=== PATIENT | female | born 1955 | race Two or more races ===

== ENCOUNTER 2017-09-12 19:54 | Emergency (ER) | payer OTHER ==
[~2017-09-12] VITALS: Ht 160 cm; Wt 80.3 kg
[2017-09-12] MEDS ORDERED: PANTOPRAZOLE 40 MG/10 ML VIAL IV STA (20:39)
[2017-09-12] MEDS ORDERED: SODIUM CHLORIDE 0.9% 500 ML IVB ONE (20:39)
[2017-09-12] MEDS ORDERED: ONDANSETRON HCL 4 MG/2 ML VIAL IV ONE (20:45)
[2017-09-12] MEDS ORDERED: MORPHINE SULFATE 4 MG/ML SYR/VIAL IV ONE (20:45)
[2017-09-12 21:35] LABS: Basophils # (auto) 0 uL; Basophils % (auto) 0.2 % (0.0-2.0); Eosinophils # (auto) 0 uL; Eosinophils % (auto) 0.2 % (0.0-7.0); Hematocrit 37.2 % (36.0-46.0); Hemoglobin 12.6 g/dL (12.2-16.2); Lymphocytes # (auto) 0.2 uL; Lymphocytes % (auto) 1.8 % (10.0-50.0); Mean Corpuscular Hemoglobin 32.7 pg (28.0-32.0); Mean Corpuscular Hgb Conc. 33.7 g/dL (32.0-36.0); Mean Corpuscular Volume 96.8 fL (80.0-100.0); Monocytes # (auto) 0.3 uL; Monocytes % (auto) 3.6 % (0.0-12.0); Neutrophils % (auto) 94.2 % (37.0-80.0); Platelet Count (auto) 160 10^3/uL (140-450); Red Blood Cells 3.84 10^6/uL (4.0-5.20); Red Cell Distribution Width 13.5 % (11.8-14.3); White Blood Cell 8.5 10^3/uL (4.4-10.8)
[2017-09-12 21:49] LABS: Albumin 3.4 g/dL (3.4-5.0); BUN/Creatinine Ratio 32.1; Magnesium 1.9 mg/dL (1.6-2.6); Potassium 3.5 mmol/L (3.5-5.1)
[2017-09-12 21:51] LABS: Bilirubin, Total 0.9 mg/dL (0.2-1.0); Total Protein 6.1 g/dL (6.4-8.2)
[2017-09-12 22:22] LABS: Urine Bacteria NONE SEEN /hpf (None Seen); Urine Blood TRACE /uL (Negative); Urine Mucus FEW (None Seen); Urine Specific Gravity 1.027 (1.001-1.035); Urine WBC 5 /hpf (0 - 5)
[2017-09-12 23:05] VITALS: BP 123/63
[2017-09-12] MEDS ORDERED: metroNIDAZOLE 500MG/100ML 100 ML IV ONE (23:15)
[2017-09-12] MEDS ORDERED: metroNIDAZOLE 500 MG TAB PO ONE (23:30)
== END 2017-09-12 23:24 | disposition short-term general hospital (02) ==
LOC: EDBD 19:54 → ER 19:54
DX: E86.0 Dehydration (principal); Z98.51 Tubal ligation status
CPT/HCPCS: 36415; 74176; 80053; 81001; 82150; 83690; 83735; 85025; 93005; 94761; 96361; 96374; 96375; 99285; C9113; J2270; J2405; J7030

== ENCOUNTER 2018-09-20 20:13 | Emergency (ER) | payer SELFPAY ==
[~2018-09-20] VITALS: Ht 154.9 cm; Wt 65.8 kg
[2018-09-20 20:44] LABS: Urine WBC None Seen /hpf (0 - 5)
[2018-09-20 21:00] LABS: Urine Bacteria NONE SEEN /hpf (None Seen); Urine Blood Negative /uL (Negative); Urine Specific Gravity 1.007 (1.001-1.035)
[2018-09-20 23:34] LABS: Basophils # (auto) 0 uL; Basophils % (auto) 0.4 % (0.0-2.0); Eosinophils # (auto) 0.1 uL; Eosinophils % (auto) 0.6 % (0.0-7.0); Hematocrit 45.6 % (36.0-46.0); Hemoglobin 15.5 g/dL (12.2-16.2); Lymphocytes # (auto) 0.7 uL; Lymphocytes % (auto) 7.1 % (10.0-50.0); Mean Corpuscular Hemoglobin 32.5 pg (28.0-32.0); Mean Corpuscular Hgb Conc. 33.9 g/dL (32.0-36.0); Mean Corpuscular Volume 95.8 fL (80.0-100.0); Monocytes # (auto) 0.5 uL; Monocytes % (auto) 4.8 % (0.0-12.0); Neutrophils # (auto) 8.3 uL; Neutrophils % (auto) 87.1 % (37.0-80.0); Platelet Count (auto) 272 10^3/uL (140-450); Red Blood Cells 4.76 10^6/uL (4.0-5.20); Red Cell Distribution Width 13.4 % (11.8-14.3); White Blood Cell 9.6 10^3/uL (4.4-10.8)
[2018-09-20 23:46] LABS: Albumin 3.9 g/dL (3.4-5.0); BUN/Creatinine Ratio 13.3; Calcium 8.7 mg/dL (8.5-10.1); Potassium 3.8 mmol/L (3.5-5.1)
[2018-09-20 23:49] LABS: Bilirubin, Total 0.3 mg/dL (0.2-1.0); Total Protein 8.3 g/dL (6.4-8.2)
[2018-09-21] MEDS ORDERED: IBUPROFEN 600 MG TAB PO ONE (01:45)
[2018-09-21 10:31] VITALS: BP 109/67
== END 2018-09-21 11:09 | disposition home or self-care (01) ==
LOC: ER 20:13
DX: R94.5 Abnormal results of liver function studies (principal); M19.90 Unspecified osteoarthritis, unspecified site; Z98.51 Tubal ligation status
CPT/HCPCS: 36415; 71045; 76705; 80053; 81001; 83605; 84484; 85025; 87040; 93005

== ENCOUNTER 2022-07-18 06:58 | Inpatient (IN) | payer BC ==
[~2022-07-18] VITALS: Ht 180.3 cm; Wt 62.3 kg
[2022-07-18 07:31] LABS: Basophils # (auto) 0 10 ^3/uL (0-0.2); Basophils % (auto) 0.4 % (0.0-2.0); Eosinophils # (auto) 0 10 ^3/uL (0-0.8); Hemoglobin 12.7 g/dL (12.2-16.2); Lymphocytes # (auto) 1.7 10 ^3/uL (0.4-5.4); Monocytes # (auto) 0.9 10 ^3/uL (0-1.3)
[2022-07-18 07:35] LABS: Eosinophils % (auto) 0.2 % (0.0-7.0); Hematocrit 36.1 % (36.0-46.0); Lymphocytes % (auto) 20.4 % (10.0-50.0); Mean Corpuscular Hemoglobin 31.5 pg (28.0-32.0); Mean Corpuscular Hgb Conc. 35.2 g/dL (32.0-36.0); Mean Corpuscular Volume 89.5 fL (80.0-100.0); Monocytes % (auto) 10.8 % (0.0-12.0); Neutrophils # (auto) 5.7 10 ^3/uL (1.6-8.6); Neutrophils % (auto) 68.2 % (37.0-80.0); Red Blood Cells 4.03 10^6/uL (4.0-5.20); Red Cell Distribution Width 12.6 % (11.8-14.3); White Blood Cell 8.3 10^3/uL (4.4-10.8)
[2022-07-18 07:41] LABS: Albumin 3.2 g/dL (3.4-5.0); Calcium 9.4 mg/dL (8.5-10.1); Potassium 4.1 mmol/L (3.5-5.1)
[2022-07-18 07:44] LABS: Bilirubin, Total 0.3 mg/dL (0.2-1.0); Total Protein 7.2 g/dL (6.4-8.2)
[2022-07-18] MEDS ORDERED: SODIUM CHLORIDE 0.9% 1,000 ML IV ONE (07:45)
[2022-07-18] MEDS ORDERED: ASPirin 81 mg TAB PO ONE (07:45)
[2022-07-18 08:07] LABS: Urine Bacteria FEW /hpf (None Seen); Urine Blood TRACE /uL (Negative); Urine Hyaline Cast MANY /lpf (0 - 2); Urine Mucus FEW (None Seen); Urine Specific Gravity 1.021 (1.001-1.035); Urine WBC 12 /hpf (0 - 5)
[2022-07-18 08:10] LABS: INR 1.06 (0.9-1.15); Partial Thromboplastin Time 29.5 sec (24.6-33.4)
[2022-07-18] MEDS ORDERED: IOHEXOL 350 MG/ML 100ML IJ ONE (12:44)
[2022-07-18] MEDS ORDERED: NITROGLYCERIN 0.4 MG SL TAB SL PRN (15:00)
[2022-07-18] MEDS ORDERED: ONDANSETRON HCL 4 MG/2 ML VIAL IV PRN (15:00)
[2022-07-18] MEDS ORDERED: MORPHINE SULFATE INJ 2 MG/ml SYRG IV PRN ×2 (15:00)
[2022-07-18 17:35] LABS: Free T4 (Free Thyroxine) 6.04 ng/dL (0.89-1.76)
[2022-07-18 17:36] LABS: Free T3 14.71 pg/mL (2.3-4.2)
[2022-07-18] MEDS: SODIUM CHLORIDE 0.9% 1,000 ML IV SCH ×2 (19:47→23:37)
[2022-07-18] MEDS ORDERED: IPRATROPIUM BROM 0.5 MG/2.5ML INH SOL NEB PRN (20:00)
[2022-07-18 20:07] VITALS: BP 140/85
[2022-07-18] MEDS ORDERED: ALBUTEROL MEDNEB 2.5 mg/3ml NEB NEB PRN (20:15)
[2022-07-18] MEDS: ATORVASTATIN 20 MG TAB PO SCH (21:49)
[2022-07-18] MEDS: PROPRANOLOL HCL 20 MG TAB PO SCH (22:00)
[2022-07-18 22:31] VITALS: BP 108/54
[2022-07-18 23:30] VITALS: BP 102/59
[2022-07-19] MEDS ORDERED: LORA-655 PO (02:32)
[2022-07-19] MEDS ORDERED: MELO-61 PO (02:32)
[2022-07-19] MEDS ORDERED: OMEG600C2 PO (02:32)
[2022-07-19] MEDS ORDERED: [UNRECOGNIZED DRUG - CODE] PO (02:32)
[2022-07-19] MEDS ORDERED: IBUP200C14 PO (02:32)
[2022-07-19] MEDS ORDERED: MULT1TAB57 PO (02:32)
[2022-07-19] MEDS ORDERED: TURM500C3 OR (02:32)
[2022-07-19] MEDS ORDERED: CHOL3000 PO (02:32)
[2022-07-19 05:00] VITALS: BP 107/55
[2022-07-19 06:11] LABS: Basophils # (auto) 0 10 ^3/uL (0-0.2); Basophils % (auto) 0.3 % (0.0-2.0); Eosinophils # (auto) 0.1 10 ^3/uL (0-0.8); Eosinophils % (auto) 0.7 % (0.0-7.0); Hematocrit 32.3 % (36.0-46.0); Hemoglobin 11.3 g/dL (12.2-16.2); Lymphocytes # (auto) 1.6 10 ^3/uL (0.4-5.4); Lymphocytes % (auto) 21.4 % (10.0-50.0); Mean Corpuscular Hemoglobin 31.8 pg (28.0-32.0); Mean Corpuscular Hgb Conc. 34.9 g/dL (32.0-36.0); Mean Corpuscular Volume 91.2 fL (80.0-100.0); Monocytes # (auto) 0.8 10 ^3/uL (0-1.3); Monocytes % (auto) 11.2 % (0.0-12.0); Neutrophils # (auto) 4.9 10 ^3/uL (1.6-8.6); Neutrophils % (auto) 66.4 % (37.0-80.0); Red Blood Cells 3.55 10^6/uL (4.0-5.20); Red Cell Distribution Width 12.4 % (11.8-14.3); White Blood Cell 7.3 10^3/uL (4.4-10.8)
[2022-07-19] MEDS: SODIUM CHLORIDE 0.9% 1,000 ML IV SCH ×3 (06:26→22:30)
[2022-07-19 06:27] LABS: Albumin 2.5 g/dL (3.4-5.0); BUN/Creatinine Ratio 26.8; Potassium 4.4 mmol/L (3.5-5.1)
[2022-07-19 06:30] LABS: Bilirubin, Total 0.5 mg/dL (0.2-1.0); Total Protein 6.2 g/dL (6.4-8.2)
[2022-07-19] MEDS: ASPirin 81 mg TAB PO SCH (08:34)
[2022-07-19] MEDS: ENOXAPARIN SOD 40 MG/0.4 ML SYRINGE SC SCH (08:34)
[2022-07-19] MEDS: PROPRANOLOL HCL 20 MG TAB PO SCH ×2 (08:35→22:00)
[2022-07-19 09:00] VITALS: BP 109/58
[2022-07-19] MEDS: MELOXICAM 15 MG PO SCH (10:00)
[2022-07-19 13:00] VITALS: BP 95/56
[2022-07-19] MEDS: methIMAzole 5 MG TAB PO SCH ×2 (13:01→22:22)
[2022-07-19] MEDS: LORazepam 0.5 MG TAB PO SCH ×2 (13:01→22:23)
[2022-07-19 17:00] VITALS: BP 110/62
[2022-07-19] MEDS ORDERED: IBUPROFEN 600 MG TAB PO PRN (18:15)
[2022-07-19 22:00] VITALS: BP 124/77
[2022-07-19] MEDS: ATORVASTATIN 20 MG TAB PO SCH (22:23)
[2022-07-20 05:00] VITALS: BP 117/63
[2022-07-20] MEDS: LORazepam 0.5 MG TAB PO SCH (05:55)
[2022-07-20] MEDS: methIMAzole 5 MG TAB PO SCH ×2 (05:55→12:40)
[2022-07-20] MEDS: ENOXAPARIN SOD 40 MG/0.4 ML SYRINGE SC SCH (08:09)
[2022-07-20] MEDS: MELOXICAM 15 MG PO SCH (08:09)
[2022-07-20] MEDS: ASPirin 81 mg TAB PO SCH (08:36)
[2022-07-20] MEDS: SODIUM CHLORIDE 0.9% 1,000 ML IV SCH (08:40)
[2022-07-20 09:00] VITALS: BP 113/60
[2022-07-20] MEDS: PROPRANOLOL HCL 20 MG TAB PO SCH (09:50)
[2022-07-20] MEDS ORDERED: METH5T PO (11:51)
[2022-07-20 12:24] VITALS: BP 99/63
[2022-07-20 13:00] VITALS: BP 99/63
[2022-07-20 13:10] LABS: Free T4 (Free Thyroxine) 4.37 ng/dL (0.89-1.76)
[2022-07-20 13:11] LABS: T3 Total 2.36 ng/mL (0.60-1.81)
== END 2022-07-20 13:00 | disposition home or self-care (01) | DRG 311 ==
LOC: ER 06:58 → TELE 15:03 → TELE-EAST 22:31
PROVIDERS: ADMIT Nurse Practitioner Family; ATTEND Internal Medicine
DX: I24.9 Acute ischemic heart disease, unspecified (principal); E44.1 Mild protein-calorie malnutrition; E05.90 Thyrotoxicosis, unspecified without thyrotoxic crisis or storm; E78.5 Hyperlipidemia, unspecified; G89.29 Other chronic pain; J43.9 Emphysema, unspecified; R00.0 Tachycardia, unspecified; F41.9 Anxiety disorder, unspecified; K76.0 Fatty (change of) liver, not elsewhere classified; Z20.822 Contact with and (suspected) exposure to COVID-19; Z83.3 Family history of diabetes mellitus; Z68.30 Body mass index [BMI] 30.0-30.9, adult
CPT/HCPCS: 36415; 71046; 71275; 76536; 80053; 81001; 83735; 84439; 84443; 84480; 84481; 84484; 85025; 85379; 85610; 85730; 87426; 93005; 93306; 96374; G0378